=== PATIENT | female | born 1960 | race Caucasian/White ===

== ENCOUNTER → 2020-10-08 | Outpatient (CLI) | payer MEDICARE, OTHER ==
[~2020-10-08] MED LIST: CEFUROXIME500 MG PO; IBUPROFEN800 MG PO
== END ==
LOC: MAMO 13:30
DX: Z12.31 Encounter for screening mammogram for malignant neoplasm of breast (principal); R73.01 Impaired fasting glucose; M51.9 Unspecified thoracic, thoracolumbar and lumbosacral intervertebral disc disorder; G62.9 Polyneuropathy, unspecified
CPT/HCPCS: 77063; 77067

== ENCOUNTER → 2020-10-11 | Outpatient (CLI) | payer MEDICARE, OTHER | LOC: RAD 13:26 | DX: J44.9 Chronic obstructive pulmonary disease, unspecified (principal); M51.9 Unspecified thoracic, thoracolumbar and lumbosacral intervertebral disc disorder; G62.9 Polyneuropathy, unspecified; R73.01 Impaired fasting glucose; R91.8 Other nonspecific abnormal finding of lung field | CPT/HCPCS: 71046 ==

== ENCOUNTER → 2020-10-18 | Outpatient (CLI) | payer MEDICARE, OTHER | LOC: CT 10:00 | DX: M51.9 Unspecified thoracic, thoracolumbar and lumbosacral intervertebral disc disorder (principal); G62.9 Polyneuropathy, unspecified; J98.4 Other disorders of lung; R73.01 Impaired fasting glucose; J44.9 Chronic obstructive pulmonary disease, unspecified; R91.8 Other nonspecific abnormal finding of lung field | CPT/HCPCS: 36415; 71260; 82565; 84520; Q9963 ==

== ENCOUNTER → 2020-10-23 | Outpatient (CLI) | payer MEDICARE, OTHER | LOC: EXRD 12:47 | DX: M25.512 Pain in left shoulder (principal); M54.2 Cervicalgia | CPT/HCPCS: 72040; 73030 ==

== ENCOUNTER → 2020-11-08 | Outpatient (CLI) | payer MEDICARE, OTHER | LOC: RAD 10:48 | DX: M51.9 Unspecified thoracic, thoracolumbar and lumbosacral intervertebral disc disorder (principal); G62.9 Polyneuropathy, unspecified; J98.4 Other disorders of lung; R73.01 Impaired fasting glucose; J44.9 Chronic obstructive pulmonary disease, unspecified; M47.812 Spondylosis without myelopathy or radiculopathy, cervical region; M47.814 Spondylosis without myelopathy or radiculopathy, thoracic region; M47.816 Spondylosis without myelopathy or radiculopathy, lumbar region | CPT/HCPCS: 72050; 72072; 72110 ==

== ENCOUNTER → 2020-12-11 | Outpatient (CLI) | payer MEDICARE, OTHER ==
[2020-12-12 14:15] LABS: ALDOLASE 6.4 U/L (3.3-10.3)
== END ==
LOC: LAB 11:37
PROVIDERS: Internal Medicine
DX: R53.83 Other fatigue (principal); M79.10 Myalgia, unspecified site
CPT/HCPCS: 36415; 82085; 82550; 86160

== ENCOUNTER → 2021-01-02 | Outpatient (CLI) | payer MEDICARE, OTHER | LOC: EXRD 01-01 15:00 → KOH-I 14:37 | DX: M81.0 Age-related osteoporosis without current pathological fracture (principal); M51.36 Other intervertebral disc degeneration, lumbar region; G62.9 Polyneuropathy, unspecified; R73.01 Impaired fasting glucose; J44.9 Chronic obstructive pulmonary disease, unspecified; M85.852 Other specified disorders of bone density and structure, left thigh | CPT/HCPCS: 77080 ==

== ENCOUNTER → 2021-01-10 | Outpatient (CLI) | payer MEDICARE, OTHER | LOC: EMI 01-07 11:00 | DX: M50.21 Other cervical disc displacement, high cervical region (principal); G62.9 Polyneuropathy, unspecified; J98.4 Other disorders of lung; R73.01 Impaired fasting glucose; J44.9 Chronic obstructive pulmonary disease, unspecified; M48.02 Spinal stenosis, cervical region | CPT/HCPCS: 72141 ==

== ENCOUNTER → 2021-01-29 | Outpatient (CLI) | payer MEDICARE, OTHER | LOC: NM 08:34 | DX: J44.9 Chronic obstructive pulmonary disease, unspecified (principal); E04.1 Nontoxic single thyroid nodule; R73.01 Impaired fasting glucose | CPT/HCPCS: 78012; A9516 ==

== ENCOUNTER → 2021-02-27 | Outpatient (CLI) | payer MEDICARE, OTHER | LOC: US 10:36 | DX: E04.2 Nontoxic multinodular goiter (principal); M51.9 Unspecified thoracic, thoracolumbar and lumbosacral intervertebral disc disorder; G62.9 Polyneuropathy, unspecified; J98.4 Other disorders of lung; R73.01 Impaired fasting glucose; J44.9 Chronic obstructive pulmonary disease, unspecified | CPT/HCPCS: 76536 ==

== ENCOUNTER → 2021-03-27 | Outpatient (CLI) | payer MEDICARE, OTHER | LOC: RAD 12:49 | DX: M54.9 Dorsalgia, unspecified (principal); M54.16 Radiculopathy, lumbar region; M25.551 Pain in right hip; M25.552 Pain in left hip; M79.641 Pain in right hand; M79.642 Pain in left hand; M16.0 Bilateral primary osteoarthritis of hip; M47.816 Spondylosis without myelopathy or radiculopathy, lumbar region; M47.814 Spondylosis without myelopathy or radiculopathy, thoracic region; M19.042 Primary osteoarthritis, left hand; M19.041 Primary osteoarthritis, right hand | CPT/HCPCS: 72072; 72100; 73130; 73522 ==

== ENCOUNTER → 2021-03-28 | Outpatient (CLI) | payer MEDICARE, OTHER | LOC: ECHO 08:56 → NM 10:00 | DX: I25.10 Atherosclerotic heart disease of native coronary artery without angina pectoris (principal); R68.89 Other general symptoms and signs; R06.02 Shortness of breath; Z20.822 Contact with and (suspected) exposure to COVID-19 | CPT/HCPCS: ECHO; 78452; 93017; 93306; A9502; J2785; U0003 ==

== ENCOUNTER → 2021-04-01 | Outpatient (CLI) | payer MEDICARE, OTHER | LOC: US 03-21 10:00 → ECHO 03-28 09:00 → US 09:31 | DX: D34 Benign neoplasm of thyroid gland (principal); J44.9 Chronic obstructive pulmonary disease, unspecified; M51.9 Unspecified thoracic, thoracolumbar and lumbosacral intervertebral disc disorder; G62.9 Polyneuropathy, unspecified; R91.8 Other nonspecific abnormal finding of lung field; I10 Essential (primary) hypertension; I25.10 Atherosclerotic heart disease of native coronary artery without angina pectoris ==

== ENCOUNTER → 2021-04-07 | Outpatient (CLI) | payer MEDICARE, OTHER | LOC: SLEEP 21:30 | DX: G47.33 Obstructive sleep apnea (adult) (pediatric) (principal); G47.61 Periodic limb movement disorder; R06.83 Snoring; R09.02 Hypoxemia | CPT/HCPCS: 95810 ==

== ENCOUNTER → 2021-05-06 | Outpatient (CLI) | payer MEDICARE, OTHER | LOC: EXRD 14:00 | DX: I73.9 Peripheral vascular disease, unspecified (principal) | CPT/HCPCS: 93925 ==

== ENCOUNTER → 2021-05-08 | Outpatient (CLI) | payer MEDICARE, OTHER | LOC: CT 04-25 11:30 | DX: J44.9 Chronic obstructive pulmonary disease, unspecified (principal); R91.8 Other nonspecific abnormal finding of lung field | CPT/HCPCS: 36415; 71260; 82565; 84520; Q9967 ==

== ENCOUNTER → 2021-06-04 | Day surgery (SDC) | payer MEDICARE, OTHER ==
[~2021-06-04] MED LIST changes: +ACETAMINOPHEN325 MG PO; +ASPIRIN81 MG PO; +BRAIN MIGHT-DH1 EACH PO; +BREO ELLIPTA 21 EACH INH; +CRESTOR40 MG PO; +DRIZALMA SPRINK30 MG PO; +EMERGEN-C 500500 MG PO; +FLOVENT DISKUS50 MCG INH; +GLUCOPHAGE 500500 MG PO; +HYDROCODON-ACE1 EAC6 PO; +LEVOCETIRIZINE D5 MG PO; +LISINOPRIL10 MG PO; +MONTELUKAST SOD10 MG PO; +MOVE FREE ULTR PO; +OXCARBAZEPINE150 MG PO; +PHENERGAN 25 MG25 M1 PO; +PROTONIX 40 MG40 M1 PO; +TRAZODONE HCL50 MG PO; +VASCEPA1 GM PO; +ZINC10 MG PO
== END | disposition home or self-care (01) ==
LOC: OR 06:46
DX: R19.7 Diarrhea, unspecified (principal); K22.70 Barrett's esophagus without dysplasia; D12.2 Benign neoplasm of ascending colon; D12.3 Benign neoplasm of transverse colon; K29.50 Unspecified chronic gastritis without bleeding; K76.6 Portal hypertension; K31.89 Other diseases of stomach and duodenum; K64.0 First degree hemorrhoids; K64.1 Second degree hemorrhoids; K21.00 Gastro-esophageal reflux disease with esophagitis, without bleeding; E66.9 Obesity, unspecified; I10 Essential (primary) hypertension; J44.9 Chronic obstructive pulmonary disease, unspecified; E78.00 Pure hypercholesterolemia, unspecified; Z88.6 Allergy status to analgesic agent; Z88.2 Allergy status to sulfonamides; Z87.891 Personal history of nicotine dependence; Z79.82 Long term (current) use of aspirin; Z96.653 Presence of artificial knee joint, bilateral; Z90.710 Acquired absence of both cervix and uterus; Z90.49 Acquired absence of other specified parts of digestive tract; Z95.5 Presence of coronary angioplasty implant and graft; Z20.822 Contact with and (suspected) exposure to COVID-19
CPT/HCPCS: 82962; J2704; J7040

== ENCOUNTER 2021-06-16 15:32 | Emergency (ER) | payer MEDICARE, OTHER ==
[2021-06-16 18:19] LABS: HEMOGLOBIN 15.1 gm/dl (12.3-15.3); RED BLOOD COUNT 5.2 M/UL (4.00-5.10); WHITE BLOOD COUNT 12.4 K/UL (4.5-11.0)
[2021-06-16 19:00] LABS: BUN/CREATININE RATIO 21 (0-10)
== END 2021-06-16 23:40 | disposition home or self-care (01) ==
LOC: ER1 15:32
PROVIDERS: Nurse Practitioner
DX: R07.89 Other chest pain (principal); I10 Essential (primary) hypertension; J44.9 Chronic obstructive pulmonary disease, unspecified; Z87.891 Personal history of nicotine dependence; Z88.1 Allergy status to other antibiotic agents
CPT/HCPCS: 36600; 80048; 81001; 82550; 82553; 82803; 83874; 84484; 85025; 85379; 85652; 86140; 93005; 99285; Q9967

== ENCOUNTER → 2021-06-18 | Outpatient (CLI) | payer MEDICARE, OTHER | LOC: LAB 11:21 | DX: N39.0 Urinary tract infection, site not specified (principal); R30.0 Dysuria | CPT/HCPCS: 87086 ==

== ENCOUNTER → 2021-06-19 | Outpatient (CLI) | payer MEDICARE, OTHER | LOC: EXRD 10:27 | DX: R31.9 Hematuria, unspecified (principal); R93.89 Abnormal findings on diagnostic imaging of other specified body structures | CPT/HCPCS: 74018 ==

== ENCOUNTER → 2021-07-08 | Outpatient (CLI) | payer MEDICARE, OTHER | LOC: EXRD 09:21 | DX: K31.819 Angiodysplasia of stomach and duodenum without bleeding (principal) | CPT/HCPCS: 76705 ==

== ENCOUNTER → 2021-07-14 | Outpatient (CLI) | payer MEDICARE, OTHER | LOC: HEART 5 12:11 | DX: R06.02 Shortness of breath (principal); R91.8 Other nonspecific abnormal finding of lung field | CPT/HCPCS: 94060; 94729 ==

== ENCOUNTER → 2021-07-30 | Outpatient (CLI) | payer MEDICARE, OTHER | LOC: KOH-I 15:06 | DX: N39.0 Urinary tract infection, site not specified (principal); R10.9 Unspecified abdominal pain; R31.9 Hematuria, unspecified; N20.0 Calculus of kidney | CPT/HCPCS: 74176 ==

== ENCOUNTER → 2021-08-01 | Outpatient (CLI) | payer MEDICARE, OTHER ==
[2021-08-01 12:13] LABS: HEMOGLOBIN 13.7 gm/dl (12.3-15.3); RED BLOOD COUNT 4.88 M/UL (4.00-5.10); WHITE BLOOD COUNT 8.4 K/UL (4.5-11.0)
[2021-08-02 07:11] LABS: VITAMIN D, 25-HYDROXY 28.7 ng/mL (30.0-100.0)
[2021-08-02 08:14] LABS: A/G RATIO 1.8 (1.2-2.2); ALKALINE PHOSPHATASE, S 76 IU/L (44-121); ALT (SGPT) 12 IU/L (0-32); AST (SGOT) 11 IU/L (0-40); BILIRUBIN, TOTAL 0.4 mg/dL (0.0-1.2); BUN 12 mg/dL (8-27); BUN/CREATININE RATIO 19 (12-28); CALCIUM, SERUM 10.1 mg/dL (8.7-10.3); CARBON DIOXIDE, TOTAL 27 mmol/L (20-29); CHLORIDE, SERUM 98 mmol/L (96-106); CHOLESTEROL, TOTAL 252 mg/dL (100-199); CREATININE, SERUM 0.62 mg/dL (0.57-1.00); GLOBULIN, TOTAL 2.5 g/dL (1.5-4.5); GLUCOSE, SERUM 91 mg/dL (65-99); HDL CHOLESTEROL 43 mg/dL (>39); LDL CHOLESTEROL CALC 178 mg/dL (0-99); LDL/HDL RATIO 4.1 ratio (0.0-3.2); POTASSIUM, SERUM 3.8 mmol/L (3.5-5.2); PROTEIN, TOTAL, SERUM 7.1 g/dL (6.0-8.5); SODIUM, SERUM 142 mmol/L (134-144); T. CHOL/HDL RATIO 5.9 ratio (0.0-4.4); TRIGLYCERIDES 166 mg/dL (0-149)
[2021-08-02 10:14] LABS: CREATININE, URINE 164.3 mg/dL (Not Estab.)
== END ==
LOC: LAB 11:05
PROVIDERS: Nurse Practitioner Family
DX: Z01.84 Encounter for antibody response examination (principal); R73.9 Hyperglycemia, unspecified; I25.10 Atherosclerotic heart disease of native coronary artery without angina pectoris; M25.50 Pain in unspecified joint; M54.12 Radiculopathy, cervical region; J30.9 Allergic rhinitis, unspecified; I10 Essential (primary) hypertension; E78.00 Pure hypercholesterolemia, unspecified; R68.89 Other general symptoms and signs; F41.9 Anxiety disorder, unspecified; E78.5 Hyperlipidemia, unspecified; E53.8 Deficiency of other specified B group vitamins; E55.9 Vitamin D deficiency, unspecified; U07.1 COVID-19
CPT/HCPCS: 36415; 80053; 80061; 81001; 82043; 82570; 82607; 83036; 84439; 84443; 85025

== ENCOUNTER → 2021-09-23 | Outpatient (CLI) | payer MEDICARE, OTHER ==
[~2021-09-23] MED LIST changes: +ANORO ELLIPTA1 EACH INH; +AZELASTINE137 MCG/0.; +CYCLOBENZAPRINE5 MG PO; +CYMBALTA60 MG PO; -DRIZALMA SPRINK30 MG PO; +FLONASE 0.05% N16 GM; +HYDROCODON-ACE1 EAC2 PO; -HYDROCODON-ACE1 EAC6 PO; -LISINOPRIL10 MG PO; +LISINOPRIL20 MG PO; +MACROBID 100 M100 MG PO; +MAG-OX 400 TAB400 MG PO; +MAXIMUM DAILY1 EAC1 PO; -MOVE FREE ULTR PO; +POTASSIUM CHLO20 ME1 PO; +PROAIR HFA8.5 GM INH; +VITAMIN D21250 MCG PO; +ZETIA10 MG PO
== END ==
LOC: CATH 09:34
DX: Z53.9 Procedure and treatment not carried out, unspecified reason (principal)

== ENCOUNTER → 2021-10-22 | Outpatient (CLI) | payer MEDICARE, OTHER | LOC: HEART 5 15:02 | DX: E78.5 Hyperlipidemia, unspecified (principal); R55 Syncope and collapse ==

== ENCOUNTER → 2021-11-03 | Outpatient (CLI) | payer MEDICARE, OTHER ==
[2021-11-03 11:37] LABS: HEMOGLOBIN 13.1 gm/dl (12.3-15.3); RED BLOOD COUNT 4.63 M/UL (4.00-5.10); WHITE BLOOD COUNT 8.8 K/UL (4.5-11.0)
[2021-11-03 12:09] LABS: BUN/CREATININE RATIO 16 (0-10)
== END ==
LOC: LAB 11:16
PROVIDERS: Internal Medicine Interventional Cardiology
DX: E78.5 Hyperlipidemia, unspecified (principal); I20.9 Angina pectoris, unspecified; R07.9 Chest pain, unspecified; R53.83 Other fatigue; R42 Dizziness and giddiness; I25.10 Atherosclerotic heart disease of native coronary artery without angina pectoris; I10 Essential (primary) hypertension
CPT/HCPCS: 36415; 80048; 85025; 85610; 85730; 93005

== ENCOUNTER 2021-11-25 06:32 | Outpatient (CLI) | payer MEDICARE, OTHER ==
[~2021-11-25] VITALS: Ht 152.4 cm; Wt 81.2 kg
[2021-11-25] MEDS ORDERED: HYDROCODON-ACE1 EAC1 PO (07:06)
[2021-11-25 17:57] LABS: HEMOGLOBIN 12.1 gm/dl (12.3-15.3); RED BLOOD COUNT 4.22 M/UL (4.00-5.10); WHITE BLOOD COUNT 7.3 K/UL (4.5-11.0)
[2021-11-25 18:17] LABS: BUN/CREATININE RATIO 14 (0-10)
[2021-11-26 02:13] LABS: HEMOGLOBIN 11.4 gm/dl (12.3-15.3); RED BLOOD COUNT 3.97 M/UL (4.00-5.10); WHITE BLOOD COUNT 6.9 K/UL (4.5-11.0)
[2021-11-26 02:40] LABS: BUN/CREATININE RATIO 12 (0-10)
[2021-11-26] MEDS ORDERED: ST. JOSEPH ASPI81 M1 PO (10:04)
[2021-11-26] MEDS ORDERED: ATORVASTATIN CA40 MG PO (10:05)
[2021-11-26] MEDS ORDERED: METOPROLOL TART25 MG PO (10:06)
[2021-11-26] MEDS ORDERED: ISORDIL TAB 3030 MG PO (10:06)
[2021-11-26] MEDS ORDERED: PROTONIX40 MG PO (10:07)
[2021-11-26] MEDS ORDERED: BRILINTA90 MG PO (10:07)
[2021-11-26] MEDS ORDERED: NITROSTAT0.4 MG SL (10:08)
== END 2021-11-26 10:52 | disposition home or self-care (01) ==
LOC: CATH 06:32 → PROG CARE 10:15 → CATH 11-26 10:52
PROVIDERS: Internal Medicine Interventional Cardiology
DX: I25.118 Atherosclerotic heart disease of native coronary artery with other forms of angina pectoris (principal); I10 Essential (primary) hypertension; J44.9 Chronic obstructive pulmonary disease, unspecified; E11.9 Type 2 diabetes mellitus without complications; E78.5 Hyperlipidemia, unspecified; G43.909 Migraine, unspecified, not intractable, without status migrainosus; G47.33 Obstructive sleep apnea (adult) (pediatric); F41.9 Anxiety disorder, unspecified; F32.A Depression, unspecified; Z95.5 Presence of coronary angioplasty implant and graft; Z88.2 Allergy status to sulfonamides; Z88.5 Allergy status to narcotic agent; Z88.6 Allergy status to analgesic agent; Z88.8 Allergy status to other drugs, medicaments and biological substances; Z79.899 Other long term (current) drug therapy
CPT/HCPCS: 36415; 80048; 82550; 82553; 82962; 84484; 85025; 85347; 93571; 97161; 99152; 99153; C1725; C1769; C1874; C1887; C1894; C9600; J0153; J0360; J1644; J2250; J2270; J2405; J3010; J3246; Q9967

== ENCOUNTER → 2021-12-03 | Outpatient (CLI) | payer MEDICARE, OTHER ==
[~2021-12-03] MED LIST changes: +ATORVASTATIN CA40 MG PO; +BRILINTA90 MG PO; +HYDROCODON-ACE1 EAC1 PO; +ISORDIL TAB 3030 MG PO; +METOPROLOL TART25 MG PO; +NITROSTAT0.4 MG SL; +PROTONIX40 MG PO; +ST. JOSEPH ASPI81 M1 PO
== END ==
LOC: LAB 15:17
DX: J30.1 Allergic rhinitis due to pollen (principal); J44.9 Chronic obstructive pulmonary disease, unspecified; J30.89 Other allergic rhinitis
CPT/HCPCS: 36415

== ENCOUNTER → 2022-01-02 | Outpatient (CLI) | payer MEDICARE, OTHER | LOC: LAB 11:53 | DX: R31.9 Hematuria, unspecified (principal) | CPT/HCPCS: 87086 ==